=== PATIENT | female | born 1990 | race Caucasian/White ===

== ENCOUNTER 2021-05-22 17:51 | Inpatient (IN) | payer BC ==
[~2021-05-22] VITALS: Ht 154.9 cm; Wt 90.7 kg
[2021-05-22] MEDS ORDERED: FEOSOL325 MG PO (18:57)
[2021-05-22 19:03] LABS: HEMOGLOBIN 9.8 gm/dl (12.3-15.3); RED BLOOD COUNT 3.72 M/UL (4.00-5.10); WHITE BLOOD COUNT 10.4 K/UL (4.5-11.0)
[2021-05-23] MEDS ORDERED: HYDROCODON-ACE1 EAC4 PO (14:07)
[2021-05-23] MEDS ORDERED: IBUPROFEN600 MG PO (14:07)
[2021-05-23] MEDS ORDERED: DOCUSATE SODIU100 MG PO (14:07)
[2021-05-24 02:56] LABS: HEMOGLOBIN 8.9 gm/dl (12.3-15.3)
== END 2021-05-25 14:38 | disposition home or self-care (01) | DRG 788 ==
LOC: GENOP 17:51 → OB 18:02
PROVIDERS: Obstetrics & Gynecology; ADMIT Obstetrics & Gynecology
PROC: 0U7C7ZZ Dilation of Cervix, Via Natural or Artificial Opening (ICD-10-PCS; 2021-05-22)
PROC: 3E033VJ Introduction of Other Hormone into Peripheral Vein, Percutaneous Approach (ICD-10-PCS; 2021-05-22)
PROC: 10907ZC Drainage of Amniotic Fluid, Therapeutic from Products of Conception, Via Natural or Artificial Opening (ICD-10-PCS; 2021-05-22)
PROC: 4A1HXCZ Monitoring of Products of Conception, Cardiac Rate, External Approach (ICD-10-PCS; 2021-05-22)
PROC: 10D00Z1 Extraction of Products of Conception, Low, Open Approach (ICD-10-PCS; principal; 2021-05-23 11:27)
DX: O34.211 Maternal care for low transverse scar from previous cesarean delivery (principal); O76 Abnormality in fetal heart rate and rhythm complicating labor and delivery; Z3A.40 40 weeks gestation of pregnancy; Z37.0 Single live birth; Z20.822 Contact with and (suspected) exposure to COVID-19
CPT/HCPCS: 36415; 81001; 82800; 85014; 85018; 85025; 90471; 90715; C9113; J0595; J0690; J1170; J2274; J2405; J2590; J2795; J3010; J7120